=== PATIENT | male | born 1965 | race African-American/Black ===

== ENCOUNTER 2021-11-07 22:06 | Emergency (ER) | payer OTHER ==
[~2021-11-07] VITALS: Ht 160 cm; Wt 62.6 kg
[2021-11-08 00:40] VITALS: BP 128/76; TEMP 97.9
== END 2021-11-08 01:41 | disposition home or self-care (01) ==
LOC: ED 22:06
PROC: 0HQEXZZ Repair Left Lower Arm Skin, External Approach (ICD-10-PCS; principal; 2021-11-07)
DX: S51.812A Laceration without foreign body of left forearm, initial encounter (principal); W45.8XXA Other foreign body or object entering through skin, initial encounter; Y93.G3 Activity, cooking and baking; Y92.89 Other specified places as the place of occurrence of the external cause
CPT/HCPCS: 90471; 90715; 96372; 99283; J0690; J1885

== ENCOUNTER 2021-11-19 16:58 | Emergency (ER) | payer OTHER ==
[~2021-11-19] VITALS: Ht 160 cm; Wt 62.6 kg
[2021-11-19 18:37] VITALS: BP 107/61; TEMP 98.1
== END 2021-11-19 18:37 | disposition home or self-care (01) ==
LOC: ED 16:58
DX: T81.33XA Disruption of traumatic injury wound repair, initial encounter (principal); L03.114 Cellulitis of left upper limb; Z48.02 Encounter for removal of sutures; Y83.8 Other surgical procedures as the cause of abnormal reaction of the patient, or of later complication, without mention of misadventure at the time of the procedure; Y92.89 Other specified places as the place of occurrence of the external cause